=== PATIENT | female | born 1940 | race Caucasian/White ===

== ENCOUNTER 2017-11-20 14:49 | Inpatient (IN) | payer MEDICARE ==
[~2017-11-20] VITALS: Ht 165.1 cm; Wt 61.4 kg
[2017-11-20 15:37] LABS: BASOPHILS ABSOLUTE AUTO 0.02 K/mm3 (0.00-0.23); BASOPHILS PERCENT AUTO 0 % (0-2); EOSINOPHILS ABSOLUTE AUTO 0.01 K/mm3 (0.00-0.68); EOSINOPHILS PERCENT AUTO 0 % (0-6); Hemoglobin 15.4 g/dL (11.5-16.0); IMMATURE GRAN ABSOLUTE AUTO 0.04 K/mm3 (0.00-0.10); IMMATURE GRAN PERCENT AUTO 0 % (0-1); LYMPHOCYTES ABSOLUTE AUTO 1.04 K/mm3 (0.84-5.20); LYMPHOCYTES PERCENT AUTO 11 % (21-46); MONOCYTES ABSOLUTE AUTO 0.25 K/mm3 (0.16-1.47); MONOCYTES PERCENT AUTO 3 % (4-13); Mean Corpuscular HGB 31.3 pg (26.0-34.0); Mean Corpuscular HGB Conc 34.2 g/dL (31.5-36.5); Mean Corpuscular Volume 92 fL (80-100); Mean Platelet Volume 9.6 fL (9.1-12.4); NEUTROPHILS PERCENT AUTO 86 % (41-73); Platelet Count 248 K/mm3 (150-400); RDW Coefficient Variation 12.9 % (11.7-14.2); RDW Standard Deviation 43.8 fL (35.1-46.3); Red Blood Cell Count 4.92 M/mm3 (3.80-5.20); White Blood Cell Count 9.86 K/mm3 (4.00-11.30)
[2017-11-20 15:50] LABS: Calcium, Ionized (POC) 1.03 mmol/L (1.10-1.46); Chloride (POC) 105 mmol/L (98-108); Creatinine (POC) 0.8 mg/dL (0.6-1.0); Glucose (ISTAT POC) 153 mg/dL (70-99); Potassium (POC) 3.6 mmol/L (3.5-5.5); Sodium (POC) 139 mmol/L (135-148); Total CO2 (POC) 21 mmol/L (21-32)
[2017-11-20 16:09] LABS: Alanine Aminotransfer (ALT/SGP 37 U/L (12-78); Albumin, Blood 3.6 g/dL (3.4-5.0); Albumin/Globulin Ratio 1.2 (0.8-1.8); Alk Phos 80 U/L (50-136); Anion Gap 12 mmol/L (6-16); Aspartate Aminotrans (AST/SGOT 26 U/L (12-37); Bilirubin, Total 0.7 mg/dL (0.1-1.0); Blood Urea Nitrogen 17 mg/dL (8-24); Bun/Creatinine Ratio 18.2 (12.0-20.0); CO2, Blood 21 mmol/L (21-32); Calcium, Blood 8.9 mg/dL (8.5-10.1); Chloride, Blood 106 mmol/L (98-108); Creatinine, Blood 0.94 mg/dL (0.40-1.00); Globulin, Blood 3.1 g/dL (2.2-4.0); Glomerular Filtration Rate >60 (60-); Glucose, Blood 153 mg/dL (70-99); Potassium, Blood 3.9 mmol/L (3.5-5.5); Sodium, Blood 139 mmol/L (136-145); Total Protein, Blood 6.7 g/dL (6.4-8.2)
[2017-11-22] MEDS ORDERED: TYLENOL325 MG PO (09:10)
== END 2017-11-22 10:29 | disposition home or self-care (01) | DRG 337 ==
LOC: ER 14:49 → SURS 18:11
PROVIDERS: Internal Medicine; Surgery
PROC: 0DN84ZZ Release Small Intestine, Percutaneous Endoscopic Approach (ICD-10-PCS; principal; 2017-11-20 18:30)
DX: K56.50 Intestinal adhesions [bands], unspecified as to partial versus complete obstruction (principal); I48.91 Unspecified atrial fibrillation; Z90.12 Acquired absence of left breast and nipple; Z90.710 Acquired absence of both cervix and uterus; Z85.3 Personal history of malignant neoplasm of breast; Z88.2 Allergy status to sulfonamides
CPT/HCPCS: 36415; 74177; 80047; 80053; 83605; 83690; 83880; 84484; 85014; 85025; 93005; 93010; 96374; 96375; 99284-25; J1100; J1170; J1650; J2370; J2405; J2710; J3010; J7120; Q9967

== ENCOUNTER 2024-07-15 11:37 | Day surgery (SDC) | payer OTHER ==
[~2024-07-15] VITALS: Ht 165.1 cm; Wt 54.4 kg
[~2024-07-15 11:37] MED LIST: Balanced Salt Epinephrine Irrigation Solution 500 mL IR SCH; Diazepam 2 MG Tab ONE; Diazepam 5 MG Tab ONE; Diazepam 5 MG Tab PO PRN; Diazepam 5 MG Tab PO SCH; Lidocaine HCl/Pf 1% 5 ML VIAL XX SCH; Moxifloxacin HCL 0.5 MG/0.1 ML 0.4MLSYR RIGHTEYE SCH; Ondansetron 4 MG SoluTab MM PRN; PHENYLEPHRINE\\TROPICAMIDE\\TETRACAINE OPHTHALMIC DILATING SOLN RIGHTEYE PRN; Povidone-Iodine 450 DROP/30 ML Solution ONE; Povidone-Iodine 450 DROP/30 ML Solution RIGHTEYE SCH; TYLENOL325 MG PO; Tetracaine HCl 0.5% Opth Soln 15 ml ONE; Tetracaine HCl/Pf 0.5% Opth Soln 4 ml ONE
--- NOTE | 2024-07-15 11:51 | NUR ---
07/15/24 1151 Jo Schultz PT STATES ANXIETY LEVEL IS 0/10 IN PREOP BEFORE 7MG VALIUM PO.
[2024-07-15] MEDS ORDERED: RISE35 (11:52)
[2024-07-15] MEDS ORDERED: ATOR20 (11:53)
--- NOTE | 2024-07-15 12:48 | NUR ---
07/15/24 1248 Shabnam Lopez VITALS AT 1248 BP:139/56 P:82 O2:97% WITH 10 LITERS OF BLOW BY OXYGEN
[2024-07-15 13:22] VITALS: BP 119/70
== END 2024-07-15 13:15 | disposition home or self-care (01) ==
LOC: ORSCSDS 11:37
PROVIDERS: Student in an Organized Health Care Education/Training Program
PROC: 08RJ3JZ Replacement of Right Lens with Synthetic Substitute, Percutaneous Approach (ICD-10-PCS; principal; 2024-07-15 13:00)
DX: H25.813 Combined forms of age-related cataract, bilateral (principal); H40.003 Preglaucoma, unspecified, bilateral; Z79.899 Other long term (current) drug therapy
CPT/HCPCS: A9270; V2632

== ENCOUNTER 2024-07-22 09:59 | Day surgery (SDC) | payer OTHER ==
[~2024-07-22] VITALS: Ht 165.1 cm; Wt 54.5 kg
[~2024-07-22 09:59] MED LIST changes: +ATOR20; -Diazepam 2 MG Tab ONE; +Diazepam 2 MG Tab PO PRN; -Diazepam 5 MG Tab ONE; -Diazepam 5 MG Tab PO PRN; -Diazepam 5 MG Tab PO SCH; +Moxifloxacin HCL 0.5 MG/0.1 ML 0.4MLSYR LEFTEYE SCH; -Moxifloxacin HCL 0.5 MG/0.1 ML 0.4MLSYR RIGHTEYE SCH; +NS 0 ML IV ONE; +PHENYLEPHRINE\\TROPICAMIDE\\TETRACAINE OPHTHALMIC DILATING SOLN LEFTEYE PRN; -PHENYLEPHRINE\\TROPICAMIDE\\TETRACAINE OPHTHALMIC DILATING SOLN RIGHTEYE PRN; +Povidone-Iodine 450 DROP/30 ML Solution LEFTEYE SCH; -Povidone-Iodine 450 DROP/30 ML Solution RIGHTEYE SCH; +RISE35; -Tetracaine HCl 0.5% Opth Soln 15 ml ONE; +diazePAM 5 MG,diazePAM 2 MG PO SCH
[2024-07-22] MEDS ORDERED: Diazepam 5 MG Tab ONE (10:09)
[2024-07-22] MEDS ORDERED: Diazepam 2 MG Tab ONE (10:09)
--- NOTE | 2024-07-22 10:30 | NUR ---
07/22/24 1030 Max Quigley CALL LIGHT WITHIN REACH. TETRACAINE IN LEFT EYE AT 1026 AND PLEDGETT IN AT 1027. PT IS ON CONTINOUS PULSE OXIMETER FOR MONITORING.
--- NOTE | 2024-07-22 11:14 | NUR ---
07/22/24 1114 Guadalupe Hernandez 1111 BP 108/68, HR 71 02 AT 97% ROOMAIR, 16 RESP
[2024-07-22 11:26] VITALS: BP 119/70
== END 2024-07-22 11:47 | disposition home or self-care (01) ==
LOC: ORSCSDS 09:59
PROVIDERS: Student in an Organized Health Care Education/Training Program
PROC: 08RK3JZ Replacement of Left Lens with Synthetic Substitute, Percutaneous Approach (ICD-10-PCS; principal; 2024-07-22 11:30)
DX: H25.812 Combined forms of age-related cataract, left eye (principal); Z96.1 Presence of intraocular lens; H40.009 Preglaucoma, unspecified, unspecified eye; Z79.899 Other long term (current) drug therapy
CPT/HCPCS: A9270; J7040; V2632